=== PATIENT | male | born 1980 | race African-American/Black ===

== ENCOUNTER 2024-11-18 09:37 | Emergency (ER) | payer MEDICAID ==
[~2024-11-18] VITALS: Ht 188 cm; Wt 94.0 kg
[2024-11-18 09:44] VITALS: O2SAT 99
[2024-11-18 09:51] VITALS: BP 112/73; PULSE 68; RESP 16; TEMP 36.7; O2SAT 98
[2024-11-18 10:28] VITALS: TEMP 98.1
[2024-11-18] MEDS: ACETAMINOPHEN 325MG TABLET PO ONE (10:28)
[2024-11-18 10:39] LABS: BASOPHILS % 0.3 % (0.0-2.0); EOSINOPHILS % 2.1 % (0.0-5.0); HEMATOCRIT. 40.9 % (42.0-52.0); LYMPHOCYTES % 34.5 % (20.0-50.0); MEAN CORPUSCULAR HEMOGLOBIN 28.3 pg (28.0-32.0); MEAN CORPUSCULAR HGB CONC 31.9 g/dL (31.0-37.0); MEAN CORPUSCULAR VOLUME 88.5 fL (80.0-94.0); MEAN PLATELET VOLUME 9.4 fl (7.4-10.4); MONOCYTES % 8.8 % (2.0-8.0); NEUTROPHILS % 54.3 % (40.0-76.0); PLATELET 189 x1000/uL (130-400); RED BLOOD CELL COUNT 4.62 mill/uL (4.7-6.1); RED CELL DISTRIBUTION WIDTH 13.5 % (11.6-14.6); WHITE BLOOD COUNT 4.6 x1000/uL (4.5-11.0)
[2024-11-18 10:50] LABS: CARBON DIOXIDE 28 mEq/L (21-32); CHLORIDE 105 mEq/L (98-107); SODIUM 143 mEq/L (136-145)
[2024-11-18 10:51] LABS: CALCIUM 9.4 mg/dL (8.7-10.4)
[2024-11-18 10:55] LABS: CREATININE 1.1 mg/dL (0.6-1.3); GLUCOSE 104 mg/dL (70-105)
[2024-11-18 10:56] LABS: UREA NITROGEN BLOOD 11 mg/dL (9-23)
[2024-11-18 10:57] LABS: ALANINE AMINOTRANSFERASE 47 IU/L (10-49); ALBUMIN 4.1 g/dL (3.2-4.8); ASPARTATE AMINOTRANSFERASE 27 IU/L (<34)
[2024-11-18 10:58] LABS: BILIRUBIN DIRECT 0.2 mg/dL (<=3.0); BILIRUBIN TOTAL 0.6 mg/dL (0.1-1.0)
[2024-11-18] MEDS ORDERED: AMOX1TAB16 MT (11:48)
== END 2024-11-18 12:10 | disposition home or self-care (01) ==
LOC: ER 09:37
DX: R10.32 Left lower quadrant pain (principal)
CPT/HCPCS: 36415; 74176; 80048; 80076; 85025; 99284